=== PATIENT | male | born 1945 | race Caucasian/White ===

== ENCOUNTER 2017-12-03 09:28 | Emergency (ER) | payer MEDICARE, OTHER ==
[~2017-12-03] VITALS: Ht 170.2 cm; Wt 82.7 kg
[2017-12-03 09:45] VITALS: BP 154/87; PULSE 73; RESP 16; TEMP 97.7; O2SAT 99
[2017-12-03] MEDS ORDERED: MORPHINE SULFATE 2 MG/ML INJ IV PUSH ONE ×2 (09:45→10:00)
[2017-12-03] MEDS ORDERED: SODIUM CHLOR 0.9% 250 ML INJ 250 ML IV ONE ×3 (09:45→10:00)
[2017-12-03] MEDS ORDERED: ONDANSETRON HCL 4 MG/2 ML VIAL IV PUSH ONE ×2 (09:45→10:00)
[2017-12-03] MEDS ORDERED: CHOLESTEROL MED PO (10:09)
[2017-12-03 10:14] LABS: AUTOMATED NEUTROPHIL # 6.3 TH/MM3 (1.8-7.7); BASOPHIL % 0.5 % (0.0-2.0); EOSINOPHIL # 0.1 TH/MM3 (0-0.4); EOSINOPHIL % 1.3 % (0.0-4.0); HEMATOCRIT 46.6 % (39.0-51.0); HEMOGLOBIN 16.3 GM/DL (13.0-17.0); LYMPH % 12.8 % (9.0-44.0); MEAN CELL VOLUME 92.6 FL (80.0-100.0); MEAN CORPUSCULAR HEMOGLOBIN 32.4 PG (27.0-34.0); MEAN PLATELET VOLUME 7.4 FL (7.0-11.0); MONOCYTE # 0.5 TH/MM3 (0-0.9); NEUT % 79.4 % (16.0-70.0); PLATELET COUNT 256 TH/MM3 (150-450); RED BLOOD COUNT 5.03 MIL/MM3 (4.50-5.90); RED CELL DISTRIBUTION WIDTH 12.3 % (11.6-17.2); WHITE BLOOD COUNT 7.9 TH/MM3 (4.0-11.0)
[2017-12-03] MEDS ORDERED: HYDROmorphone HCL PF 1 MG/ML VIAL IV PUSH ONE (10:30)
[2017-12-03] MEDS ORDERED: HYDROmorphone HCL PF 2 MG/ML VIAL IV PUSH ONE (10:30)
[2017-12-03 10:41] LABS: CHLORIDE 106 MEQ/L (98-107); SODIUM (NA) 140 MEQ/L (136-145)
[2017-12-03 10:44] LABS: ALBUMIN 3.7 GM/DL (3.4-5.0); BICARBONATE 24.5 MEQ/L (21.0-32.0); BLOOD UREA NITROGEN 24 MG/DL (7-18); CALCIUM 8.7 MG/DL (8.5-10.1); GLUCOSE,RANDOM 132 MG/DL (74-106)
[2017-12-03 10:47] LABS: ALT (GPT) 15 U/L (12-78); AST (GOT) 15 U/L (15-37); GLOMERULAR FILTRATION RATE 60 ML/MIN (>89)
[2017-12-03 10:49] LABS: TOTAL BILIRUBIN ADULT 0.4 MG/DL (0.2-1.0); TOTAL PROTEIN 7.3 GM/DL (6.4-8.2)
[2017-12-03 10:50] LABS: ALKALINE PHOSPHATASE 53 U/L (45-117)
[2017-12-03 10:55] VITALS: BP 160/91; PULSE 69; RESP 16; O2SAT 98
--- NOTE | 2017-12-03 11:46 | RADRPT ---
EXAM DATE/TIME: 12/03/2017 10:36 [place] COMPARISON: No previous studies available for comparison. INDICATIONS : Right flank pain. ORAL CONTRAST: No oral contrast ingested. RADIATION DOSE: 15.60 CTDIvol (mGy) MEDICAL HISTORY : Renal calculi. Aneurysm, abdominal. Colitis. SURGICAL HISTORY : Appendectomy. Colon resection. ENCOUNTER: Initial ACUITY: 1 day PAIN SCALE: 10/10 LOCATION: Right flank TECHNIQUE: Volumetric scanning of the abdomen and pelvis was performed. Using automated exposure control and ad justment of the mA and/or kV according to patient size, radiation dose was kept as low as reasonably achievable to obtain optimal diagnostic quality images. DICOM format image data is available electro nically for review and comparison. FINDINGS: Lung base is are clear. The liver is free of focal defects. Large calcified gallstone is evident without inflammatory changes Pancreas and spleen are unremarkable Marked perinephric stranding about the right kidney with 2 mm stone right UVJ There no calcifications in the left kidney 4.8 cm infrarenal abdominal aortic aneurysm Prostate calcifications and pelvis No inflammatory changes in the pelvis Previous rectal surgery. Review of bone windows reveals only degenerative changes. CONCLUSION: 2 mm right UVJ stone with moderate perinephric stranding. 4.8 cm infrarenal abdominal aortic aneurysm. Isrrael Myers MD FACR on December 03, 2017 at 11:14 Board Certified Radiologist. This report was verified electronically.
[2017-12-03 11:55] VITALS: BP 160/87; PULSE 75; RESP 16; O2SAT 97
[2017-12-03 11:59] VITALS: RESP 16
[2017-12-03] MEDS ORDERED: TAMS5CAP PO (12:01)
[2017-12-03] MEDS ORDERED: TRAM50TA PO (12:01)
--- NOTE | 2017-12-03 12:01 | PD ---
HPI Chief Complaint: Abdominal Pain Time Seen by Provider: 09:40 Travel History International Travel<30 days: No Contact w/Intl Traveler<30days: No Traveled to known affect area: No History of Present Illness HPI This is a 9-year-old male presents to the ER complaining of right lower quadrant pain started suddenly this morning patient denies any fever chills or night sweats. Pain is 10 out of 10, worse when he pees, sharp, nothing makes it worse or better. Patient had kidney stone about 8 years ago and had similar type of pain. No nausea or vomiting or diarrhea, no chest pain or shortness of breath. PFSH Past Medical History High Cholesterol: Yes Diminished Hearing: No Kidney Stones: Yes Immunizations Current: Yes Influenza Vaccination: No Past Surgical History Abdominal Surgery: Yes (COLON REMOVED, J-POUCH) Appendectomy: Yes Social History Alcohol Use: Yes (SOCIALLY) Tobacco Use: No Substance Use: No Allergies-Medications (Allergen,Severity, Reaction): Coded Allergies: metronidazole (Verified Allergy, Unknown, 12/03/17) Reported Meds & Prescriptions Reported Meds & Active Scripts Active Flomax (Tamsulosin HCl) 0.4 Mg Cap 0.4 Mg PO HS Tramadol (Tramadol HCl) 50 Mg Tab 50 Mg PO Q4H PRN Reported [Cholesterol Med] 10 Mg PO [id number] Review of Systems Except as stated in HPI: all other systems reviewed are Neg Physical Exam Narrative GENERAL: Alert oriented 3 no acute distress. SKIN: Focused skin assessment warm/dry. HEAD: Atraumatic. Normocephalic. EYES: Pupils equal and round. No scleral icterus. No injection or drainage. ENT: No nasal bleeding or discharge. Mucous membranes pink and moist. NECK: Trachea midline. No JVD. CARDIOVASCULAR: Regular rate and rhythm. No murmur appreciated. RESPIRATORY: No accessory muscle use. Clear to auscultation. Breath sounds equal bilaterally. GASTROINTESTINAL: Abdomen soft, non-tender, nondistended. Hepatic and splenic margins not palpable. MUSCULOSKELETAL: No obvious deformities. No clubbing. No cyanosis. No edema. NEUROLOGICAL: Awake and alert. No obvious cranial nerve deficits. Motor grossly within normal limits. Normal speech. PSYCHIATRIC: Appropriate mood and affect; insight and judgment normal. Data Data Last Documented VS Vital Signs Date Time Temp Pulse Resp B/P (MAP) Pulse Ox O2 Delivery O2 Flow Rate FiO2 12/03/17 11:59 16 12/03/17 10:55 69 160/91 (114) 98 Room Air 12/03/17 09:45 97.7 Orders Orders Sodium Chlor 0.9% 250 Ml Inj (Ns 250 Ml (12/03/17 09:45) Complete Blood Count With Diff (12/03/17 09:43) Comprehensive Metabolic Panel (12/03/17 09:43) Urinalysis - C+S If Indicated (12/03/17 09:43) Ct Abd/Pel W/O Iv Contrast (12/03/17 ) Ondansetron Inj (Zofran Inj) (12/03/17 09:45) Morphine Inj (Morphine Inj) (12/03/17 09:45) Sodium Chlor 0.9% 250 Ml Inj (Ns 250 Ml (12/03/17 09:45) Ondansetron Inj (Zofran Inj) (12/03/17 10:00) Sodium Chlor 0.9% 250 Ml Inj (Ns 250 Ml (12/03/17 10:00) Morphine Inj (Morphine Inj) (12/03/17 10:00) Hydromorphone Pf Inj (Dilaudid Pf Inj) (12/03/17 10:30) Hydromorphone Pf Inj (Dilaudid Pf Inj) (12/03/17 10:30) Tramadol (Ultram) (12/03/17 12:15) Labs Laboratory Tests Test 12/03/17 10:00 12/03/17 11:55 White Blood Count 7.9 TH/MM3 Red Blood Count 5.03 MIL/MM3 Hemoglobin 16.3 GM/DL Hematocrit 46.6 % Mean Corpuscular Volume 92.6 FL Mean Corpuscular Hemoglobin 32.4 PG Mean Corpuscular Hemoglobin Concent 35.0 % Red Cell Distribution Width 12.3 % Platelet Count 256 TH/MM3 Mean Platelet Volume 7.4 FL Neutrophils (%) (Auto) 79.4 % Lymphocytes (%) (Auto) 12.8 % Monocytes (%) (Auto) 6.0 % Eosinophils (%) (Auto) 1.3 % Basophils (%) (Auto) 0.5 % Neutrophils # (Auto) 6.3 TH/MM3 Lymphocytes # (Auto) 1.0 TH/MM3 Monocytes # (Auto) 0.5 TH/MM3 Eosinophils # (Auto) 0.1 TH/MM3 Basophils # (Auto) 0.0 TH/MM3 CBC Comment DIFF FINAL Differential Comment Blood Urea Nitrogen 24 MG/DL Creatinine 1.20 MG/DL Random Glucose 132 MG/DL Total Protein 7.3 GM/DL Albumin 3.7 GM/DL Calcium Level 8.7 MG/DL Alkaline Phosphatase 53 U/L Aspartate Amino Transf (AST/SGOT) 15 U/L Alanine Aminotransferase (ALT/SGPT) 15 U/L Total Bilirubin 0.4 MG/DL Sodium Level 140 MEQ/L Potassium Level 4.1 MEQ/L Chloride Level 106 MEQ/L Carbon Dioxide Level 24.5 MEQ/L Anion Gap 10 MEQ/L Estimat Glomerular Filtration Rate 60 ML/MIN Urine Color YELLOW Urine Turbidity CLEAR Urine pH 7.5 Urine Specific [place] 1.015 Urine Protein TRACE mg/dL Urine Glucose (UA) NEG mg/dL Urine Ketones NEG mg/dL Urine Occult Blood MOD Urine Nitrite NEG Urine Bilirubin NEG Urine Urobilinogen 0.2 MG/DL Urine Leukocyte Esterase NEG MDM Medical Decision Making Medical Screen Exam Complete: Yes Emergency Medical Condition: Yes Differential Diagnosis Kidney stone, abdominal obstruction, UTI Narrative Course This is a 72-year-old male who presented to the ER complaining of right lower quadrant pain. CT shows a 2 mm right UVJ stone, 4.8 cm abdominal aneurysm. I explained the patient the CT results and is stable to be discharged to follow- up with urology. We will give the patient pain control as well as Flomax. Patient can return to ER if symptoms change or do not improve. Diagnosis Primary Impression: Nephrolithiasis Additional Impression: Aortic aneurysm Qualified Codes: I71.4 - Abdominal aortic aneurysm, without rupture Scripts Tamsulosin (Flomax) 0.4 Mg Cap 0.4 MG PO HS for Manage Prostate Problems, #15 CAP 0 Refills Prov: Hamilton Lopez MD 12/03/17 Tramadol (Tramadol) 50 Mg Tab 50 MG PO Q4H Y for PAIN, #20 TAB 0 Refills Prov: Hamilton Lopez MD 12/03/17 Disposition: 01 DISCHARGE HOME Condition: Stable Hamilton Lopez MD Dec 03, 2017 12:01
[2017-12-03 12:04] LABS: BILIRUBIN, URINE NEG (NEG); BLOOD, URINE MOD (NEG); GLUCOSE,URINE NEG (NEG); KETONE, URINE NEG (NEG); NITRITE,URINE NEG (NEG); PH, URINE 7.5 (5.0-8.5); URINE COLOR YELLOW (YELLW/STRAW); URINE LEUKOCYTE ESTERASE NEG (NEG)
[2017-12-03 12:11] LABS: RBC, URINE 15-19 /hpf (0-3); SQUAMOUS EPITHELIAL CELL URINE 0-5 /hpf (0-5); WBC, URINE 0-2 /hpf (0-5)
[2017-12-03] MEDS ORDERED: traMADol HCL 50 MG TAB PO ONE (12:15)
== END 2017-12-03 12:52 | disposition home or self-care (01) ==
LOC: PHED 09:28
DX: N20.0 Calculus of kidney (principal); I71.4 Abdominal aortic aneurysm, without rupture; E78.00 Pure hypercholesterolemia, unspecified; Z87.442 Personal history of urinary calculi
CPT/HCPCS: 74176; 80053; 81001; 85025; 96361; 96374; 96375; 99284; J1170; J2270; J2405; J7050

== ENCOUNTER → 2018-02-25 | Outpatient (CLI) | payer MEDICARE, OTHER ==
[~2018-02-25] MED LIST: CHOLESTEROL MED PO; TAMS5CAP PO; TRAM50TA PO
[2018-02-25 10:44] LABS: CHOLESTEROL/ HDL RATIO 2.27 RATIO; HDL CHOLESTEROL 71.1 MG/DL (40.0-60.0)
== END ==
LOC: PLAB 08:20
PROVIDERS: ATTEND Family Medicine
DX: E78.00 Pure hypercholesterolemia, unspecified (principal)
CPT/HCPCS: 36415; 80061; 84460